=== PATIENT | male | born 1965 | race Caucasian/White ===

== ENCOUNTER 2017-10-29 15:34 | Emergency (ER) | payer BC ==
[~2017-10-29] VITALS: Ht 172.7 cm; Wt 96.7 kg
[2017-10-29 16:04] LABS: BASOPHIL (%) 0.3 % (0-1); EOSINOPHIL (%) 1.2 % (0-5); EOSINOPHIL COUNT 0.1 K/uL (0-0.3); IMMATURE GRANULOCYTE (%) 0.2 % (0.0-0.7); LYMPHOCYTE (%) 35.2 % (15-42); LYMPHOCYTE COUNT 2.1 K/uL (1.0-2.8); MCH 30.8 PG (29.0-34.0); MCHC 34.9 G/DL (30.0-36.0); MCV 88.3 FL (86-99); MONOCYTE (%) 9.7 % (3-12); MONOCYTE COUNT 0.6 K/uL (0-0.8); NEUTROPHIL (%) 53.4 % (45-76); NEUTROPHIL COUNT 3.2 K/uL (1.8-6.4); PLATELET COUNT 195 K/uL (156-360); RBC DIS.WIDTH-CV 12.1 % (11.8-14.6); RBC DIS.WIDTH-SD 38.7 % (39-53); RED BLOOD COUNT 4.87 M/uL (4.00-5.50)
[2017-10-29 16:12] LABS: ALBUMIN 4.4 g/dL (3.2-4.8); CHLORIDE 105 mEq/L (99-109); SODIUM 140 mEq/L (136-147)
[2017-10-29 16:14] LABS: GLUCOSE 109 mg/dL (70-99); TOTAL PROTEIN 6.7 g/dL (6.4-8.3)
[2017-10-29 16:16] LABS: TOTAL BILIRUBIN 0.7 mg/dL (0.0-1.0)
[2017-10-29 16:18] LABS: ALKALINE PHOSPHATASE 67 IU/L (3-129); GFR ESTIMATE (CALCULATED) > 59 mL/min/ (58.99-99999)
[2017-10-29 16:19] LABS: UREA NITROGEN (BUN) 19 mg/dL (9-23)
[2017-10-29 16:20] LABS: AST (GOT) 67 IU/L (2-34)
[2017-10-29 16:21] LABS: ALT (GPT) 116 IU/L (3-49); LIPASE 40 U/L (1.0-51.0)
[2017-10-29 16:25] LABS: D-DIMER ELISA < 150.00 ng/mLDDU (<230)
[2017-10-29 16:27] LABS: TROP-I INTERPRETATION NEGATIVE; TROPONIN-I 0.01 ng/mL (0.0-0.30)
[2017-10-29 19:16] LABS: TROP-I INTERPRETATION NEGATIVE; TROPONIN-I 0.03 ng/mL (0.0-0.30)
[2017-10-29 20:10] VITALS: BP 137/89
== END 2017-10-29 20:10 | disposition home or self-care (01) ==
LOC: EME 15:34
PROVIDERS: Physician Assistant
DX: R07.9 Chest pain, unspecified (principal); R20.0 Anesthesia of skin; R23.1 Pallor; Z82.49 Family history of ischemic heart disease and other diseases of the circulatory system
CPT/HCPCS: 71046; 80053; 83690; 84484; 85025; 85379; 93005; 99281; 99285; J7030